=== PATIENT | male | born 2000 | race Caucasian/White ===

== ENCOUNTER 2021-03-30 16:32 | Emergency (ER) | payer MEDICAID ==
[~2021-03-30] VITALS: Ht 177.8 cm; Wt 77.1 kg
--- NOTE | 2021-03-30 16:35 | NUR ---
PT TAKEN TO BED 11, BEDSIDE TRIAGE PERFORMED.
[2021-03-30 16:39] VITALS: BP 133/86
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
[2021-03-30] MEDS ORDERED: IBUP-1842 PO (16:50)
[2021-03-30] MEDS: IBUPROFEN 400 MG TAB PO ONE (16:55)
== END 2021-03-30 17:02 | disposition home or self-care (01) ==
LOC: MED 16:32
DX: H92.01 Otalgia, right ear (principal); H93.11 Tinnitus, right ear; Z79.899 Other long term (current) drug therapy
CPT/HCPCS: 99282